=== PATIENT | male | born 1955 | race Caucasian/White ===

== ENCOUNTER → 2017-02-21 | Outpatient (CLI) | payer BC ==
[~2017-02-21] MED LIST: CEPH500T7 PO; CLIN300C99 PO; DOCU-416 PO; FLU45SYR25 IM ONLY; FLU60SYR30 IM ONLY; FURO-45 PO; LACT10SO62 PO; NADO20TA12 PO; PANT40TA65 PO; QUET25TA PO; SPIR100T31 PO; SPIR25TA78 PO
--- NOTE | 2017-02-21 11:09 | RADIOLOGY IMAGING REPORT ---
FACILITY: [facility] PATIENT NAME: Glenn Camara : 1955 MR: [id number] V: [id number] EXAM DATE: ORDERING PHYSICIAN: [facility] TECHNOLOGIST: Location: [facility] - [place] Patient: Glenn Camara : 1955 Visit/Account:[id number] Date of Sevice: 02/21/2017 EXAMINATION: Abdominal ultrasound complete HISTORY: Transplant workup, rule out HCC COMPARISON: Abdomen ultrasound August 25, [address] abdomen pelvis November 09, 2011 FINDINGS: Gallbladder: The gallbladder is contracted therefore not ideally evaluated. By history the patient h ad coffee previous to the examination. Liver: Liver appears small with slightly nodular contour and coarse echotexture. A focal hepatic mas s was not demonstrated. There is hepatopedal flow in the portal vein however the portal vein is dila suzie at 1.6 cm. Common duct: Normal measuring 2.6 mm. Pancreas: Partially obscured by bowel gas although the visualized portion appears grossly unremarkabl e Spleen: Spleen is mildly enlarged measuring The spleen is mildly enlarged measuring 13.5 x 14.5 cm cm in length. Kidneys: Normal in size and echogenicity, the right measures 11 cm in length, and the left O.3 cm. No hydronephrosis. Is a 1.5 cm cyst lower pole the left kidney. Upper abdominal aorta and IVC: Negative. Ascites: None. IMPRESSION: Liver appears small with a slightly lobular contour and a coarse echotexture consistent with clinical history of cirrhosis. A focal hepatic mass was not demonstrated There is hepatopedal flow in the portal vein however the portal vein is dilated at 1.6 cm The gallbladder was not well evaluated due to contraction. By history the patient had coffee prior t o the examination Mild splenomegaly Report Dictated By: Karley Parsons MD at 02/21/2017 10:54 AM Report E-Signed By: Karley Parsons MD at 02/21/2017 11:06 AM WSN:[email or web address]
== END ==
LOC: US 02:42
PROVIDERS: ATTEND Internal Medicine Gastroenterology
DX: Z12.89 Encounter for screening for malignant neoplasm of other sites (principal); K74.60 Unspecified cirrhosis of liver; I87.8 Other specified disorders of veins; R16.1 Splenomegaly, not elsewhere classified
CPT/HCPCS: 76700

== ENCOUNTER → 2017-05-12 | Outpatient (CLI) | payer BC ==
[~2017-05-12] MED LIST changes: +ALBU8.5H IH
--- NOTE | 2017-05-12 11:25 | RADIOLOGY IMAGING REPORT ---
FACILITY: [facility] PATIENT NAME: Glenn Camara : 1955 MR: [id number] V: [id number] EXAM DATE: ORDERING PHYSICIAN: KIMBERLEY MODI TECHNOLOGIST: Location: [facility] - [place] Patient: Glenn Camara : 1955 Visit/Account:[id number] Date of Sevice: 05/12/2017 Technique: CHEST PA AND LAT HISTORY: Reactive cough Comparison studies: None FINDINGS: No lobar airspace consolidation. There are increased interstitial lung markings as well as pulmonary hyperexpansion. The cardiac silhouette is unremarkable. Degenerative changes are noted w ithin the thoracic spine. IMPRESSION: 1. No acute cardiopulmonary process. 2. Chronic lung changes as characterized above. Report Dictated By: Guilherme Jones DO at 05/12/2017 11:18 AM Report E-Signed By: Guilherme Jones DO at 05/12/2017 11:21 AM WSN:[email or web address]
== END ==
LOC: RAD 10:57
PROVIDERS: ATTEND Emergency Medicine
DX: R91.8 Other nonspecific abnormal finding of lung field (principal)
CPT/HCPCS: 71046